=== PATIENT | female | born 1955 | race Caucasian/White ===

== ENCOUNTER 2017-04-15 08:52 | Emergency (ER) | payer OTHER ==
[2017-04-15 10:55] VITALS: BP 110/70
--- NOTE | 2017-04-15 11:55 | UC ---
Walter Tejeda SooYoung, scribed for KandiIbeth DO on 04/15/17 at 1015 . FLU HPI - HPI Summary HPI Summary: A 61 y/o F presents to [facility] [place] with c/o productive cough with non-bloody phlegm onset 5 days ago. Associated sx: fever, sore throat, ear ache, sinus congestion/ VIEIRA, mild rib pain due to coughing. Denies new onset of CP, SOB, abd pain. She's been taking Theraflu, Tylenol to mild relief. Five days ago, she was visiting with her granddaughter and new great grandbaby had flu, bronchial PNA. - History of Current Complaint Chief Complaint: UCRespiratory Stated Complaint: COUGH, AND FEVER Time Seen by Provider: 04/15/17 10:06 Hx Obtained From: Patient ?: No Onset/Duration: Gradual Onset, Lasting Days, Still Present Severity Currently: Moderate Severity Initially: Moderate Pain Intensity: 7 Pain Scale Used: 0-10 Numeric Associated Signs & Symptoms: Positive: Fever, Myalgia, Cough, Sore Throat, Nasal Congestion, Headache. Negative: Vomiting Related Hx: Possible Flu/Infectious Exposure, Smoking - Allergy/Home Medications Allergies/Adverse Reactions: Allergies Allergy/AdvReac Type Severity Reaction Status Date / Time DAIRY Allergy Severe Hives Uncoded 04/15/17 08:58 FLU SHOT Allergy Severe Unknown Uncoded 04/15/17 08:58 Reaction Details PMH/Surg Hx/FS Hx/Imm Hx Cardiovascular History: Other Other Cardiovascular History: neg: HTN Other Respiratory History: neg: copd GI/ History: Ulcer - Surgical History Surgical History: Yes Surgery Procedure, Year, and Place: lumbar surgery 2006. Right thumb SURGERY WITH PIN 2012 - Family History Known Family History: Positive: Cardiac Disease, Hypertension, Other - CVA/TIA; [place] - Social History Occupation: Unemployed Lives: With Family Alcohol Use: None Substance Use Type: None Smoking Status (MU): Current Some Day Smoker Amount Used/How Often: 1 PPW Have You Smoked in the Last Year: Yes - currently quitting Cessation Counseling: Patient Advised to Stop Review of Systems Constitutional: Fever Skin: Negative Eyes: Negative ENT: Sore Throat, Ear Ache Respiratory: Cough Cardiovascular: Negative Gastrointestinal: Negative Genitourinary: Negative Motor: Negative Neurovascular: Negative Musculoskeletal: Other: - pos: rib pain due to cough Neurological: Headache Psychological: Negative Is Patient Immunocompromised?: Yes All Other Systems Reviewed And Are Negative: Yes Physical Exam Triage Information Reviewed: Yes Appearance: Well-Appearing, No Pain Distress, Well-Nourished Vital Signs: Initial Vital Signs Temp 97.1 F 04/15/17 08:58 Pulse 80 04/15/17 08:58 Resp 16 04/15/17 08:58 BP 132/79 04/15/17 08:58 Pulse Ox 97 04/15/17 08:58 Vital Signs Reviewed: Yes Eyes: Positive: Conjunctiva Clear. Negative: Discharge ENT: Positive: Hearing grossly normal, Pharynx normal, Nasal congestion, Nasal drainage, TMs normal. Negative: Tonsillar swelling, Tonsillar exudate, Trismus , Muffled/hoarse voice Neck exam: Normal Neck: Positive: Supple Respiratory: Positive: Lungs clear, No respiratory distress, No accessory muscle use, Expiration - prolonged basilar expiration. Negative: Wheezing Cardiovascular: Positive: RRR, No Murmur Musculoskeletal Exam: Normal Musculoskeletal: Positive: Strength Intact, ROM Intact, No Edema Neurological: Positive: Alert, Muscle Tone Normal Psychological: Positive: Age Appropriate Behavior Skin Exam: Normal, Other - warm, dry, nml color Flu Course/Dx - Course Course Of Treatment: Medications reviewed. The patient has been encouraged to continue to quit smoking. Elevated blood pressure noted. Rapid influenza A and B are negative. - Differential Dx/Diagnosis Provider Diagnoses: 1. sinusitis. 2. bronchospasm. 3. Elevated blood pressure without diagnosis of hypertension. Discharge - Discharge Plan Condition: Stable Disposition: HOME Prescriptions: Albuterol HFA INHALER* [Ventolin HFA Inhaler*] 2 puff INH Q4H PRN #1 mdi PRN Reason: Sob/Wheezing Amoxicillin/Clavulanate TAB* [Augmentin TAB 875*] 875 mg PO BID #20 tab guaiFENesin ER TAB [Mucinex*] 600 mg PO BID PRN #1 box PRN Reason: Cough guaiFENesin/CODIEN 100MG-10MG* [Robitussin AC 100Mg-10Mg*] 5 - 10 ml PO BEDTIME PRN #100 udc MDD 10ml PRN Reason: Cough Patient Education Materials: Sinusitis (ED), Bronchospasm (ED) Referrals: Avila Bush DO [Primary Care Provider] - 1 Week Additional Instructions: TRY USING THE NETTI POT IN THE MORNINGS DISCUSSED. YOU MUST ALWAYS USE CLEAN WATER. REMEMBER, POSTURE IS AN IMPORTANT FACTOR IN SINUS DRAINAGE. MOVE YOUR NECK, BREATHE. INHALED BRONCHODILATORS: You have received a prescription for an inhaled bronchodilator -- a medication which stimulates the airways in the lung to dilate. This improves the flow of air in asthma, bronchitis, and emphysema. These medicines have some similarity to adrenaline, and can cause similar side effects: shakiness, racing heart, and a sense of nervousness. These side effects decrease with time. Contact your doctor if these side effects are severe. Do not over-use the medicine. Too-frequent use of the inhaler may make it ineffective. Call your doctor if the inhaler is not controlling your symptoms at the prescribed doses. COUGH-SUPPRESSANT & EXPECTORANT MEDICATION: You are to use a cough medication as needed for relief of symptoms. This medicine is a combination of an expectorant (to make the mucous thinner and more easily "coughed up") and a cough suppressant (to reduce the frequency of coughing). The cough-suppressant medicine is related to narcotics. You may experience mild nausea and sleepiness. Some patients who are very sensitive to narcotics may have stomach pain from this medicine. Taking the medicine with food reduces these side effects. Do not drive or work with machinery until you know how this medicine affects you. The expectorant should have no side effects. Iodine-containing expectorants (such as organidin) should not be taken by persons with active thyroid disease unless approved by your doctor. Call the doctor if you develop shortness of breath, hives, rash, itching, lightheadedness, or severe nausea and vomiting. EXPECTORANT MEDICATION: WE SENT IN A SCRIPT FOR MUCINEX SO THAT IT IS EASIER FOR YOU TO PICK THE RIGHT MED AT THE PHARMACY. HOWEVER, YOU CAN ALSO GO TO THE NATURAL FOOD STORE AND BUY PLAIN GUAIFENESIN WITHOU BINDERS OR FILLERS. An expectorant medicine has been prescribed. This type of drug makes mucous thinner, helping the sinuses, nose, and bronchial tubes to remain free of pus and mucous. Expectorants make a cough less severe and more comfortable, and help infected sinuses drain. In general, antihistamines defeat the purpose of the expectorant by making mucous thicker. They should be avoided unless specifically recommended by your physician. ANTIBIOTICS ARE NOT CURRENTLY INDICATED FOR YOUR CONDITION. hOWEVER, IF YOUR SYMPTOMS WORSEN OR PERSIST FOR OVER THE NEXT 3-5 DAYS, YOU CAN TAKE THE FOLLOWING MEDICATION: AUGMENTIN: Augmentin is a mixture of amoxicillin and clavulanate. Amoxicillin is a member of the penicillin family. It covers the germs likely to cause ear, bronchial, and urinary infections better than plain penicillin. The addition of clavulanate allows it to cover staph infections of the skin, as well as resistant cases of ear and sinus infections. Your physician has chosen Augmentin for you because of the special nature of your situation. Augmentin is best taken with meals. Nausea after taking the medication is rare, but can occur. Diarrhea can occur, particularly in small children. Vaginal yeast infections, and oral thrush in infants are also common. Contact your physician if these problems occur. Allergy to penicillins is common. If you have had an allergic reaction to any drug of the penicillin family, you should never take any other penicillin. Notify your doctor at once if you develop hives, shortness of breath, swelling, or faintness. ANYTIME YOU TAKE AN ANTIBIOTIC, IT IS IMPORTANT TO REPLENISH THE BODY'S SUPPLY OF "GOOD BACTERIA." YOU CAN GET GOOD BACTERIA FROM HIGH QUALITY CULTURED FOODS SUCH LOCAL YOGURT, SOUR KRAUT, MANUEL KACEY, NATURALLY FERMENTED PICKLES AND PROBIOTIC DRINKS. YOU CAN ALSO GET GOOD BACTERIA FROM A PROBIOTIC SUPPLEMENT. Your blood pressure was elevated at this visit. That does not mean you have hypertension, it is probably due to your current condition. Please follow up with your primary care provider. The documentation as recorded by the Walter avila SooYoung accurately reflects the service I personally performed and the decisions made by me, Ibeth Chau DO.
== END 2017-04-15 11:13 | disposition home or self-care (01) ==
LOC: UCEAST 08:52
DX: J32.9 Chronic sinusitis, unspecified (principal); J98.01 Acute bronchospasm; R03.0 Elevated blood-pressure reading, without diagnosis of hypertension; F17.210 Nicotine dependence, cigarettes, uncomplicated
CPT/HCPCS: 87502; 99212; G0463

== ENCOUNTER 2018-11-28 12:52 | Emergency (ER) | payer OTHER ==
[2018-11-28 13:12] VITALS: BP 115/66
--- NOTE | 2018-11-28 13:20 | UC ---
Shoulder Pain HPI - HPI Summary HPI Summary: 63 yo female presents with LEFT shoulder pain. She tells me that 2 days ago she was sitting with her dog and holding his leash. The dog took off running and pulled pt's left arm/shoulder forward. Area has been painful since that time. She has tried resting and gentle ROM with little relief. Denies numbness or tingling. - History of Current Complaint Chief Complaint: UCUpperExtremity Stated Complaint: LT SHOULDER INJURY Time Seen by Provider: 11/28/18 13:19 Hx Obtained From: Patient Onset/Duration: Sudden Onset Timing: Constant Severity Initially: Severe Severity Currently: Severe Pain Intensity: 10 Pain Scale Used: 0-10 Numeric - Allergies/Home Medications Allergies/Adverse Reactions: Allergies Allergy/AdvReac Type Severity Reaction Status Date / Time DAIRY Allergy Severe Hives Uncoded 11/28/18 13:12 FLU SHOT Allergy Severe Unknown Uncoded 11/28/18 13:12 Reaction Details Home Medications: Home Medications NK [No Home Medications Reported] 11/28/18 [History Confirmed 11/28/18] PMH/Surg Hx/FS Hx/Imm Hx - Additional Past Medical History Additional PMH: None - Surgical History Surgical History: Yes Surgery Procedure, Year, and Place: lumbar surgery 2006. Right thumb SURGERY WITH PIN 2012 - Family History Known Family History: Positive: Cardiac Disease, Hypertension, Other - CVA/TIA; [place] - Social History Lives: With Family Alcohol Use: None Substance Use Type: None Smoking Status (MU): Current Some Day Smoker Amount Used/How Often: 1 PPW Have You Smoked in the Last Year: Yes - currently quitting Review of Systems All Other Systems Reviewed And Are Negative: Yes Constitutional: Positive: Negative Skin: Positive: Negative Respiratory: Positive: Negative Cardiovascular: Positive: Negative Neurovascular: Positive: Negative Musculoskeletal: Positive: Other: - Left shoulder pain Neurological: Positive: Negative Psychological: Positive: Negative Physical Exam - Summary Physical Exam Summary: GENERAL: NAD. WDWN. No pain distress. SKIN: No rashes, sores, lesions, or open wounds. CHEST: No accessory muscle use. Breathing comfortably and in no distress. CV: Pulses intact radial and ulnar. Cap refill <2seconds MSK: LEFT SHOULDER: Mild TTP at anterior shoulder along pec major. FROM, but pain >90deg flexion at same site. Strength 5/5 including congressional assistant strength. No edema or obvious bony deformities. NEgative empty can, gonsales-david, and barnes. NEURO: Alert. Sensations intact C4-T1 left UE. PSYCH: Age appropriate behavior. Triage Information Reviewed: Yes Vital Signs: Initial Vital Signs Temp 97.5 F 11/28/18 13:07 Pulse 65 11/28/18 13:07 Resp 20 11/28/18 13:07 BP 115/66 11/28/18 13:07 Pulse Ox 97 11/28/18 13:07 Vital Signs Reviewed: Yes Shoulder Course/Dx - Course Course Of Treatment: XR: IMPRESSION: No fracture of the left shoulder is noted. Suspect muscle strain of pec major/shoulder. Advised to continue gentle ROM exercises. Try ibuprofen as directed and apply ice/heat to the area to decrease pain. F/u with [facility] if symptoms do not improve. - Differential Dx/Diagnosis Provider Diagnosis: Left shoulder pain Discharge - Sign-Out/Discharge Documenting (check all that apply): Patient Departure All imaging exams completed and their final reports reviewed: Yes - Discharge Plan Condition: Stable Disposition: HOME Patient Education Materials: Rotator Cuff Injury (ED) Referrals: Avila Bush DO [Primary Care Provider] - [facility] [Provider Group] - If Needed Additional Instructions: If you develop a fever, shortness of breath, chest pain, new or worsening symptoms - please call your PCP or go to the ED immediately. 1) Rest and apply ice to your shoulder to decrease pain 2) I suspect your shoulder will improve with time and NSAIDs such as ibuprofen, but if it has not improved over the next 5-7 days - please call [facility] at the number below to schedule an appointment for a recheck. - Billing Disposition and Condition Condition: STABLE Disposition: Home
== END 2018-11-28 13:47 | disposition home or self-care (01) ==
LOC: UCEAST 12:52
DX: M25.512 Pain in left shoulder (principal); Z88.7 Allergy status to serum and vaccine; Z91.011 Allergy to milk products; Z72.0 Tobacco use
CPT/HCPCS: 99211; G0463

== ENCOUNTER 2019-02-17 10:38 | Emergency (ER) | payer OTHER ==
[2019-02-17 11:05] VITALS: BP 110/63
--- NOTE | 2019-02-17 11:19 | UC ---
Skin Complaint HPI - HPI Summary HPI Summary: 63 year old female presents with an itchy rash for the pat four days. She states she was cutting her lawn and experienced black fly bites. She has tried Benadryl and anti-itch lotion without much relief. Denies fever, chill nor illness. - History of Current Complaint Chief Complaint: UCRas Time Seen by Provider: 02/17/19 11:07 Stated Complaint: SKIN COMPLAINT Hx Obtained From: Patient Onset/Duration: Sudden Onset, Lasting Days Onset Severity: Mild Current Severity: Mild Pain Intensity: 0 Location: Discrete - a few lesions on upper and lower extremities. Aggravating Factor(s): Humidity Alleviating Factor(s): Nothing Associated Signs & Symptoms: Positive: Negative Related History: Insect Bite/Sting - black fly - Allergy/Home Medications Allergies/Adverse Reactions: Allergies Allergy/AdvReac Type Severity Reaction Status Date / Time DAIRY Allergy Severe Hives Uncoded 02/17/19 11:05 FLU SHOT Allergy Severe Unknown Uncoded 02/17/19 11:05 Reaction Details PMH/Surg Hx/FS Hx/Imm Hx Previously Healthy: Yes - Surgical History Surgical History: Yes Surgery Procedure, Year, and Place: lumbar surgery 2006. Right thumb SURGERY WITH PIN 2012 - Family History Known Family History: Positive: Cardiac Disease, Hypertension, Other - CVA/TIA; [place] - Social History Lives: Alone Alcohol Use: None Substance Use Type: None Smoking Status (MU): Current Some Day Smoker Amount Used/How Often: 1 PPW Have You Smoked in the Last Year: Yes - currently quitting Review of Systems All Other Systems Reviewed And Are Negative: Yes Constitutional: Positive: Negative Skin: Positive: Rash, Other - itching Eyes: Positive: Negative Respiratory: Positive: Negative Cardiovascular: Positive: Negative Gastrointestinal: Positive: Negative Genitourinary: Positive: Negative Motor: Positive: Negative Neurovascular: Positive: Negative Musculoskeletal: Positive: Negative Neurological: Positive: Negative Psychological: Positive: Negative Is Patient Immunocompromised?: No Physical Exam Triage Information Reviewed: Yes Appearance: Well-Appearing, No Pain Distress, Well-Nourished Vital Signs: Initial Vital Signs Temp 98 F 02/17/19 11:01 Pulse 65 02/17/19 11:01 Resp 16 02/17/19 11:01 BP 110/63 02/17/19 11:01 Pulse Ox 100 02/17/19 11:01 Vital Signs Reviewed: Yes Eye Exam: Normal ENT Exam: Normal Neck exam: Normal Respiratory Exam: Normal Cardiovascular Exam: Normal Abdominal Exam: Normal Neurological Exam: Normal Skin: Positive: Other - Two raised papules, one on right shoulder and one on posterior left calf consistent with an insect bite. No surrounding erthema, warmth nor discharge. Course/Dx - Differential Diagnoses - Skin Complaint Differential Diagnoses: Urticaria - Diagnoses Provider Diagnosis: Insect bite Discharge - Sign-Out/Discharge Documenting (check all that apply): Patient Departure All imaging exams completed and their final reports reviewed: No Studies - Discharge Plan Condition: Stable Disposition: HOME Prescriptions: Betamethasone Valerate 0.1 % TOPICAL BID PRN #30 gm PRN Reason: Itching Patient Education Materials: Itchy Skin (ED) Referrals: Avila Bush DO [Primary Care Provider] - Additional Instructions: Apply betamethasone valerate cream twice daily to itchy areas. Take loratadine 10md daily as needed for itching and stay cool. - Billing Disposition and Condition Condition: STABLE Disposition: Home
== END 2019-02-17 11:58 | disposition home or self-care (01) ==
LOC: UCCORT 10:38
DX: S40.261A Insect bite (nonvenomous) of right shoulder, initial encounter (principal); S80.862A Insect bite (nonvenomous), left lower leg, initial encounter; W57.XXXA Bitten or stung by nonvenomous insect and other nonvenomous arthropods, initial encounter; Y93.H2 Activity, gardening and landscaping; Y92.007 Garden or yard of unspecified non-institutional (private) residence as the place of occurrence of the external cause; F17.210 Nicotine dependence, cigarettes, uncomplicated
CPT/HCPCS: 99212; G0463

== ENCOUNTER 2019-05-14 09:42 | Emergency (ER) | payer OTHER ==
[2019-05-14 09:57] VITALS: BP 142/81
--- NOTE | 2019-05-14 09:58 | UC ---
Ear Complaint HPI - HPI Summary HPI Summary: C/O LEFT EAR PAIN X 1 WEEK STATES NOW PAIN AROUND LEFT EYE AND PAIN DOWN FACE/ JAW/NECK-TAKING LOTS OF TYLENOL AND APPLYING ICE TO AREA - History of Current Complaint Chief Complaint: UCEar Stated Complaint: EAR PAIN Time Seen by Provider: 05/14/19 09:57 Hx Obtained From: Patient Pain Intensity: 8 Pain Scale Used: 0-10 Numeric Aggravating Factors: Cold Alleviating Factors: Nothing Associated Signs/Symptoms: Negative: Hearing Loss - Allergies/Home Medications Allergies/Adverse Reactions: Allergies Allergy/AdvReac Type Severity Reaction Status Date / Time DAIRY Allergy Severe Hives Uncoded 03/20/19 15:19 FLU SHOT Allergy Severe Unknown Uncoded 03/20/19 15:19 Reaction Details Home Medications: Home Medications Acetaminophen [Tylenol] 650 mg PO Q6H PRN 05/14/19 [History Confirmed 05/14/19] PMH/Surg Hx/FS Hx/Imm Hx - Additional Past Medical History Additional PMH: no chronic conditions. Previously Healthy: Yes - Surgical History Surgical History: Yes Surgery Procedure, Year, and Place: lumbar surgery 2006. Right thumb SURGERY WITH PIN 2012 - Family History Known Family History: Positive: Cardiac Disease, Hypertension, Other - CVA/TIA; [place] - Social History Alcohol Use: None Substance Use Type: None Smoking Status (MU): Light Every Day Tobacco Smoker Amount Used/How Often: 1 PPW Have You Smoked in the Last Year: Yes - currently quitting Household Exposure Type: Cigarettes Review of Systems All Other Systems Reviewed And Are Negative: Yes Constitutional: Negative: Fever, Chills ENT: Positive: Dental Pain, Ear Ache, Sinus Pain/Tenderness Respiratory: Positive: Negative Cardiovascular: Positive: Negative Neurological: Negative: Headache Physical Exam Triage Information Reviewed: Yes Appearance: Well-Appearing Vital Signs: Initial Vital Signs Temp 98.9 F 05/14/19 09:49 Pulse 70 05/14/19 09:49 Resp 18 05/14/19 09:49 BP 142/81 05/14/19 09:49 Pulse Ox 98 05/14/19 09:49 Vital Signs Reviewed: Yes ENT: Positive: Pharynx normal, TMs normal - R, Other - L TM unable to visualize , due to cerumen blockage. Negative: Muffled voice, Sinus tenderness - OR MASTOID TENDERNESS Neck: Positive: Supple, Nontender, No Lymphadenopathy Respiratory: Positive: No respiratory distress Neurological: Positive: Alert, Other: - NORMAL SPEECH Ear Complaint Course/Dx - Course Course Of Treatment: L EAR PAIN, ACUTE. UNABLE TO VISUALIZE TM BUT DO NOT SUSPECT OM. SHE IS AFEBRIEL WHICH IS REASSURING. SHE HAD BAD EXPERIENCE HERE W/ EAR LAVAGE LAST TIME SO WILL HAVE HER USE DEBROX AT HOME. ADVISED TO RETURN IF NO BETTER IN THE NEXT 2 DAYS OR IF FEVER DEVELOPS. VITALS GOOD. - Differential Dx/Diagnosis Differential Diagnosis/HQI/PQRI: Barotrauma, Cerumen Impaction, Otitis Externa, Otitis Media Provider Diagnosis: Ear pain, left Discharge ED - Sign-Out/Discharge Documenting (check all that apply): Patient Departure All imaging exams completed and their final reports reviewed: No Studies - Discharge Plan Condition: Good Disposition: HOME Prescriptions: Carbamide Peroxide 6.5% OTIC* [DEBROX 6.5% Otic*] 5 drop LEFT EAR BID #1 bottle Ibuprofen [Ibu] 600 mg PO Q6HR #30 tablet Patient Education Materials: Earache (ED) Referrals: Avila Bush DO [Primary Care Provider] - Additional Instructions: I do not think you have an ear infection but again as we discussed it is hard to visualize with the ear wax in the way. Given your last experience with ear cleaning we will have you do at home. - Billing Disposition and Condition Condition: GOOD Disposition: Home
== END 2019-05-14 10:18 | disposition home or self-care (01) ==
LOC: UCEAST 09:42
DX: H92.02 Otalgia, left ear (principal); F17.210 Nicotine dependence, cigarettes, uncomplicated; Z91.011 Allergy to milk products; Z88.7 Allergy status to serum and vaccine
CPT/HCPCS: 99212; G0463

== ENCOUNTER 2019-10-03 12:31 | Emergency (ER) | payer OTHER ==
[2019-10-03 13:10] VITALS: BP 120/65
== END 2019-10-03 15:12 | disposition left against medical advice (07) ==
LOC: UCEAST 12:31
DX: Z53.21 Procedure and treatment not carried out due to patient leaving prior to being seen by health care provider (principal)

== ENCOUNTER 2023-07-05 05:46 | Observation (INO) ==
[~2023-07-05 05:46] MED LIST: Naloxone 0.4 mg VIAL 0.4 mg/ml 1 ml VIAL IV PRN; fentaNYL 100 mcg/2 ml 50 MCG/ML VIAL IV PRN
[2023-07-05] MEDS ORDERED: Lactated Ringers 1000 ml BAG 1,000 ML IV SCH ×2 (06:00→10:00)
[2023-07-05] MEDS ORDERED: Buffered Lidocaine 1% SYRIN 1 ml INTRADERM ONE (06:00)
[2023-07-05] MEDS ORDERED: ceFAZolin 2 GM PREMIX 2 GM/50 ML BAG ONE (06:16)
[2023-07-05] MEDS ORDERED: Chlorhexidine MOUTHWASH 0.12% 15 ML UDC ONE (06:16)
[2023-07-05 06:31] LABS: Rapid COVID-19 Molecular Undetected (Undetected)
[2023-07-05] MEDS ORDERED: Rocuronium 50 mg VIAL 10 mg/ml 5 ml VIAL (50 mg) ONE (06:54)
[2023-07-05] MEDS ORDERED: fentaNYL 100 mcg/2 ml 50 MCG/ML VIAL ONE ×2 (06:54→09:43)
[2023-07-05] MEDS ORDERED: Midazolam 2 mg/2 ml VIAL 1 mg/ml 2 ml VIAL (2 mg) ONE (06:55)
[2023-07-05] MEDS ORDERED: Ondansetron 4 mg VIAL 2 MG/ML 2 ml VIAL ONE (07:00)
[2023-07-05] MEDS ORDERED: Dexamethasone IV 4 MG/ML VIAL 1 ml VIAL ONE (07:00)
[2023-07-05] MEDS ORDERED: Propofol 10 MG/ML 20 ML BTL ONE (07:00)
[2023-07-05] MEDS ORDERED: Sterile Water for Inj 10 ML ONE (07:00)
[2023-07-05] MEDS ORDERED: Lidocaine 2% PF 5 ML VIAL ONE (07:01)
[2023-07-05] MEDS ORDERED: Phenylephrine IV 10 MG/ML 1 ml VIAL ONE (07:01)
[2023-07-05] MEDS ORDERED: Desflurane 240 ML INH ONE (07:01)
[2023-07-05] MEDS ORDERED: Sevoflurane BOTTLE ONE (07:01)
[2023-07-05] MEDS ORDERED: Acetaminophen IV 1 GM/100ML 1,000 MG/100 ML BAG IV ONE (07:01)
[2023-07-05] MEDS ORDERED: ceFAZolin VIAL VIAL ONE (07:16)
[2023-07-05] MEDS ORDERED: Gelfoam Sponge SIZE 100 SPONGE ONE (07:16)
[2023-07-05] MEDS ORDERED: Lidocaine 1% w EPI 1:100,000 MDV 20 ML VIAL ONE (07:16)
[2023-07-05] MEDS ORDERED: Thrombin 5,000 UNITS 1 APPLIC KIT - topical use - TOPICAL ONE (07:16)
[2023-07-05] MEDS ORDERED: Ondansetron 4 mg VIAL 2 MG/ML 2 ml VIAL IV PRN (09:09)
[2023-07-05] MEDS ORDERED: Calcium Carb (TUMS) 500 mg CHEW TAB PO PRN (09:09)
[2023-07-05] MEDS ORDERED: Phenol 1.4% Throat Spray BTL MT PRN (09:09)
[2023-07-05] MEDS ORDERED: HYDROcodone/ACETAMIN 5/325 mg TAB PO PRN (09:09)
[2023-07-05] MEDS ORDERED: Dextran 70/Hypromellose Tears Eye Drops 15 ml BTL (for Artificials Tears) BOTH EYES PRN (09:09)
[2023-07-05] MEDS ORDERED: Morphine 2 MG/ML SYRINGE IV PRN (09:09)
[2023-07-05] MEDS ORDERED: Benzocaine/Menthol LOZ MT PRN (09:09)
[2023-07-05] MEDS ORDERED: Senna TAB 8.6 mg TAB PO PRN (09:09)
[2023-07-05] MEDS ORDERED: HYDROcodone/ACETAMIN 5/325 mg TAB ONE (09:39)
[2023-07-05] MEDS: HYDROcodone/ACETAMIN 5/325 mg TAB PO PRN ×2 (09:41→16:59)
[2023-07-05] MEDS: Nicotine PATCH 14 MG/24 HR PATCH TRANSDERM SCH (10:55)
[2023-07-06] MEDS: Nicotine PATCH 14 MG/24 HR PATCH TRANSDERM SCH (09:27)
[2023-07-06 11:17] VITALS: BP 125/67
== END 2023-07-06 12:10 | disposition home or self-care (01) ==
LOC: SSU 05:46 → OR 05:46
PROVIDERS: ADMIT Neurological Surgery; ATTEND Neurological Surgery